=== PATIENT | female | born 1950 | race Caucasian/White ===

== ENCOUNTER 2022-02-10 16:49 | Emergency (ER) | payer OTHER, MEDICAID ==
[~2022-02-10] VITALS: Ht 172.7 cm; Wt 119.0 kg
[~2022-02-10 16:49] MED LIST changes: -COQ1200C3 PO; -DIGO0.123 PO; -ENTR1TAB PO; -GABA600T4 PO; -MAGN64TA3 PO; -METO1TAB7 PO; -STIO1AER PO
[2022-02-10 19:15] LABS: BASO # 0.1 10^3/uL (0.0-0.2); BASO % 0.5 % (0.0-1.0); EOS # 0.3 10^3/uL (0.0-0.5); EOS % 1.9 % (0.0-3.0); HEMATOCRIT 34.4 % (36.0-47.0); HEMOGLOBIN 10.5 g/dl (12.0-15.5); LYMPH # 2.2 10^3/uL (1.5-5.0); LYMPH % 16.3 % (24.0-44.0); MEAN CORPUSCULAR HEMOGLOBIN 26.9 pg (27.0-33.0); MEAN CORPUSCULAR HGB CONC 30.5 g/dl (32.0-36.5); MEAN CORPUSCULAR VOLUME 88.2 fl (80.0-96.0); MONO # 1.3 10^3/uL (0.0-0.8); MONO % 9.7 % (2.0-8.0); NEUTROPHILS # 9.4 10^3/uL (1.5-8.5); PLATELET COUNT, AUTOMATED 154 10^3/uL (150-450); WHITE BLOOD COUNT 13.2 10^3/uL (4.0-10.0)
[2022-02-10] MEDS ORDERED: ISOVUE-370 76% 100ML VIAL As Ordered ONE (19:20)
[2022-02-10 19:36] LABS: INR 1.14; PROTHROMBIN TIME 14.8 SECONDS (12.5-14.5)
[2022-02-10 19:37] LABS: ALBUMIN 2.8 G/DL (3.2-5.2); BILIRUBIN,DIRECT 0.1 MG/DL (<0.4); BILIRUBIN,TOTAL 0.4 MG/DL (0.3-1.2); PARTIAL THROMBOPLASTIN TIME 28.6 SECONDS (24.8-34.2); TOTAL PROTEIN 6.4 G/DL (5.7-8.2)
[2022-02-10 19:49] LABS: RSV AMPLIFICATION NEGATIVE (NEGATIVE)
[2022-02-10] MEDS ORDERED: HEPARIN DRIP 25,000 UNITS in IV 1 EA IV SCH (19:50)
[2022-02-10] MEDS ORDERED: XARE15TA PO (20:06)
[2022-02-10] MEDS ORDERED: DIGO0.123 PO (20:06)
[2022-02-10] MEDS ORDERED: STIO1AER PO (20:06)
[2022-02-10] MEDS ORDERED: COQ1200C3 PO (20:06)
[2022-02-10] MEDS ORDERED: GABA600T4 PO (20:06)
[2022-02-10] MEDS ORDERED: MAGN64TA3 PO (20:06)
[2022-02-10] MEDS ORDERED: METO1TAB7 PO (20:06)
[2022-02-10] MEDS ORDERED: ENTR1TAB PO (20:06)
[2022-02-10] MEDS ORDERED: HOME MED LIST COMPLETE! XX SCH (20:10)
[2022-02-10 23:45] VITALS: BP 152/65
== END 2022-02-11 00:07 | disposition short-term general hospital (02) ==
LOC: M ED 16:49
DX: I82.403 Acute embolism and thrombosis of unspecified deep veins of lower extremity, bilateral (principal); J44.9 Chronic obstructive pulmonary disease, unspecified; E78.5 Hyperlipidemia, unspecified; I10 Essential (primary) hypertension; Z86.718 Personal history of other venous thrombosis and embolism; Z88.5 Allergy status to narcotic agent; Z91.018 Allergy to other foods; Z79.891 Long term (current) use of opiate analgesic; Z79.01 Long term (current) use of anticoagulants
CPT/HCPCS: 71275; 80047; 80076; 85025; 85610; 85730; 87631; 93005; 93041; 93970; 94760; 96365; 96366; 99285; J1644; Q9967

== ENCOUNTER → 2022-02-10 | Outpatient (CLI) | payer OTHER, MEDICAID ==
[~2022-02-10] MED LIST: ACCUPRIL20 PO; ACCUPRIL40 PO; ALLO10TA PO; ASP81 PO; ASPI81TA26 PO; ASPI81TA3; AUGXR7 PO; CAHNTIXC PO; CALCARB; CALCTAB41 PO; CALCWAF4; CARI1TAB7 PO; CELEBRE200 PO; CENT1TAB PO; CHAN0.5P PO; CHOL4POW26 PO; CLEBREX; COLCHI0.6 PO; COQ1200C3 PO; CYMBALTA60 PO; DIFLUC150 PO; DIGO0.123 PO; ENTR1TAB PO; FENT1DIS16; FERR1TAB8 PO; FISH1000 PO; FOLI1TAB; FOLI1TAB11 PO; FOLI400T13 PO; FURO20TA2 PO; FURO40TA2; FURO40TA2 PO; GABA600T3; GABA600T4 PO; HABITROL2 TOPICAL; LASIX20 PO; LIDODERM; LIDODERM PATCH; LISI40TA; LISI40TA4 PO; LISINOPR40 PO; LOVAZA; LOVAZA PO; LYRICA100 PO; LYRICA50 PO; MAGN64TA3 PO; METO1TAB7 PO; MILK140C PO; NASONEX NASAL; NEUR600T PO; NEURONTIN3 PO; NEURONTIN6 PO; NIASPAN500 PO; NICODERM TOPICAL; NICODERM14 TOPICAL; OMACOR PO; PLENDIL10 PO; POTA1TAB14 PO; PREMARI0.9 PO; PRIL20CA; PRILOSEC20 PO; RANI150C; SENO8.6T5; SIMV10TA2; SLOWTAB2 PO; SOMA350T; STIO1AER PO; TRAM50TA2; VANCOCIN; VIOXX125 PO; XARE15TA PO; ZANTAC150 PO; ZOCOR10 PO; [UNRECOGNIZED DRUG - OTHER]; centrum silver; feldene; fish oil; flector patch; milk thistle
== END ==
LOC: M RAD 16:11
PROVIDERS: ATTEND Physician Assistant Medical
DX: M79.604 Pain in right leg (principal)

== ENCOUNTER → 2022-05-02 | Outpatient (CLI) | payer OTHER, MEDICAID ==
[~2022-05-02] MED LIST changes: +COQ1200C3 PO; +DIGO0.123 PO; +ENTR1TAB PO; +GABA600T4 PO; +MAGN64TA3 PO; +METO1TAB7 PO; +STIO1AER PO
== END ==
LOC: M RAD 08:50
PROVIDERS: ATTEND Physician Assistant Medical
DX: G43.009 Migraine without aura, not intractable, without status migrainosus (principal)

== ENCOUNTER → 2022-05-31 | Outpatient (CLI) | payer OTHER, MEDICAID | LOC: M RAD 10:10 | PROVIDERS: ATTEND Physician Assistant Medical | DX: R42 Dizziness and giddiness (principal); N83.209 Unspecified ovarian cyst, unspecified side ==

== ENCOUNTER → 2022-07-18 | Outpatient (CLI) | payer OTHER, MEDICAID ==
[~2022-07-18] MED LIST changes: +POTA-298 PO; -POTA1TAB14 PO
== END ==
LOC: M WHC 15:10
PROVIDERS: ATTEND Physician Assistant Medical
DX: D39.9 Neoplasm of uncertain behavior of female genital organ, unspecified (principal)

== ENCOUNTER → 2022-08-18 | Outpatient (CLI) | payer OTHER, MEDICAID ==
[~2022-08-18] MED LIST changes: +PROHANCE 279.3MG/ML 15ML VIAL ONE
== END ==
LOC: M PLAIMG 07:54
PROVIDERS: ATTEND Physician Assistant Medical
DX: N83.201 Unspecified ovarian cyst, right side (principal); Z90.79 Acquired absence of other genital organ(s)
CPT/HCPCS: 72197; A9576

== ENCOUNTER → 2023-03-15 | Outpatient (CLI) | payer OTHER, MEDICAID ==
[~2023-03-15] MED LIST changes: -PROHANCE 279.3MG/ML 15ML VIAL ONE
== END ==
LOC: M WHC 13:36
PROVIDERS: ATTEND Nurse Practitioner Adult Health
DX: Z78.0 Asymptomatic menopausal state (principal); Z12.31 Encounter for screening mammogram for malignant neoplasm of breast; M85.89 Other specified disorders of bone density and structure, multiple sites

== ENCOUNTER → 2023-04-03 | Outpatient (CLI) | payer OTHER, MEDICAID | LOC: M WHC 10:04 | PROVIDERS: ATTEND Nurse Practitioner Adult Health | DX: D48.62 Neoplasm of uncertain behavior of left breast (principal) | CPT/HCPCS: 77065; G0279 ==

== ENCOUNTER → 2023-04-18 | Outpatient (CLI) | payer OTHER, MEDICAID | LOC: M RAD 11:14 | PROVIDERS: ATTEND Surgery Vascular Surgery | DX: I82.90 Acute embolism and thrombosis of unspecified vein (principal); I82.5Z1 Chronic embolism and thrombosis of unspecified deep veins of right distal lower extremity ==

== ENCOUNTER → 2024-06-03 | Outpatient (CLI) | payer OTHER, MEDICAID ==
[~2024-06-03] MED LIST changes: +CARI-555 PO; -CARI1TAB7 PO; +GABA-1490 PO; -GABA600T4 PO
== END ==
LOC: M PLAIMG 14:46
PROVIDERS: ATTEND Nurse Practitioner
DX: M47.816 Spondylosis without myelopathy or radiculopathy, lumbar region (principal); M48.061 Spinal stenosis, lumbar region without neurogenic claudication; M47.817 Spondylosis without myelopathy or radiculopathy, lumbosacral region; M48.07 Spinal stenosis, lumbosacral region

== ENCOUNTER → 2025-03-03 | Outpatient (CLI) | payer MEDICARE, MEDICAID ==
[~2025-03-03] MED LIST changes: +LISI40TA10 PO; -LISI40TA4 PO; +SLOW1TAB3 PO; -SLOWTAB2 PO
== END ==
LOC: M RAD 10:07
PROVIDERS: ATTEND Physician Assistant Medical
DX: I65.23 Occlusion and stenosis of bilateral carotid arteries (principal)